=== PATIENT | male | born 1955 ===

== ENCOUNTER 2020-06-30 18:40 | Emergency (ER) | payer OTHER ==
[~2020-06-30] VITALS: Ht 165.1 cm; Wt 70.3 kg
[2020-06-30] MEDS ORDERED: DIAZ10TA PO (18:54)
[2020-06-30] MEDS ORDERED: MORP60TA4 PO (18:54)
[2020-06-30] MEDS ORDERED: LIDOCAINE 5% PATCH TD ONE ×2 (19:15→19:24)
[2020-06-30] MEDS ORDERED: ACETAMINOPHEN 325 MG TABLET PO ONE (19:15)
[2020-06-30] MEDS ORDERED: MORPHINE SULFATE 4 MG/1 ML DISP.SYRIN IM ONE (19:15)
[2020-06-30] MEDS ORDERED: DIAZEPAM 10 MG/2 ML DISP.SYRIN IM ONE (19:15)
--- NOTE | 2020-06-30 19:15 | NUR ---
body art technician in room to take x-rays of L knee.
[2020-06-30] MEDS ORDERED: ACETAMINOPHEN 325 MG TABLET ONE (19:23)
[2020-06-30] MEDS ORDERED: MORPHINE SULFATE 4 MG/1 ML DISP.SYRIN ONE (19:24)
[2020-06-30] MEDS ORDERED: DIAZEPAM 2 MG TABLET PO ONE (19:30)
[2020-06-30] MEDS ORDERED: DIAZEPAM 2 MG TABLET ONE (19:30)
--- NOTE | 2020-06-30 20:00 | NUR ---
Patient is resting on bed, eating food. States pain is 9/10, but does not appear distressed and appears calm. Santino DO notified.
--- NOTE | 2020-06-30 20:29 | NUR ---
Followed up on [facility] for patient. Pending arrival of [facility] tech.
--- NOTE | 2020-06-30 20:33 | NUR ---
[facility] tech arrived to take duplex of patient.
[2020-06-30 21:40] VITALS: BP 140/74
--- NOTE | 2020-06-30 21:40 | NUR ---
Patient discharged to home in stable condition. Written and verbal after care instructions given. Patient verbalizes understanding of instructions. Stressed follow up or return to ER for worsening s/s. Patient ambulates with steady gait w/ his walker, received copy of results of x-ray & U/S, stable V/S, left with all personal belongings.
== END 2020-06-30 21:40 | disposition home or self-care (01) ==
LOC: ER 18:53 → EDSEX 18:53 → ER 21:40
DX: G89.29 Other chronic pain (principal); M25.562 Pain in left knee; M79.604 Pain in right leg; I10 Essential (primary) hypertension; Z88.0 Allergy status to penicillin; Z88.8 Allergy status to other drugs, medicaments and biological substances; F17.210 Nicotine dependence, cigarettes, uncomplicated; Z59.0 Homelessness
CPT/HCPCS: 73564; 93970; 99284; J2270; A4663; J3360